=== PATIENT | female | born 1985 | race Caucasian/White ===

== ENCOUNTER → 2020-12-16 | Day surgery (SDC) | payer OTHER ==
[~2020-12-16] VITALS: Ht 162.6 cm; Wt 78.5 kg
[~2020-12-16] MED LIST: IBU600 MG PO; PERCOCET 5-3251 EACH PO
[2020-12-16 11:31] LABS: HCG (URINE) SCREEN NEGATIVE (NEGATIVE)
[2020-12-16 11:36] LABS: HCT 40.3 % (37.0-47.0); HGB 13.5 g/dl (12.5-16.0); MCHC 33.5 g/dL (32.0-36.0); MCV 89.6 fL (78.0-100.0); MPV 9.8 fL (6.0-9.5); RBC 4.5 M/uL (4.20-5.40); RDW 12.5 % (11.5-14.0); WBC 10.5 K/uL (4.0-10.5)
== END | disposition home or self-care (01) ==
LOC: FAS 10:51
PROVIDERS: Obstetrics & Gynecology
DX: N75.0 Cyst of Bartholin's gland (principal); F90.9 Attention-deficit hyperactivity disorder, unspecified type; F41.9 Anxiety disorder, unspecified; F31.9 Bipolar disorder, unspecified; Z87.891 Personal history of nicotine dependence; Z88.5 Allergy status to narcotic agent
CPT/HCPCS: 36415; 84703; 86850; 86900; 86901; J1100; J1170; J1885; J2250; J2405; J2704; J3010; J7120

== ENCOUNTER 2021-03-25 11:57 | Emergency (ER) | payer OTHER | END 2021-03-25 15:38 | disposition left against medical advice (07) | LOC: FER 11:57 | DX: N76.4 Abscess of vulva (principal); Z53.21 Procedure and treatment not carried out due to patient leaving prior to being seen by health care provider ==

== ENCOUNTER → 2021-11-04 | Day surgery (SDC) | payer OTHER ==
[~2021-11-04] VITALS: Ht 162.6 cm; Wt 79.4 kg
[~2021-11-04] MED LIST changes: +DESYREL50 MG PO; +LAMOTRIGINE25 MG PO; +NEURONTIN300 MG PO; +VENTOLIN HFA IN18 GM INH
[2021-11-04 10:26] LABS: HCG (URINE) SCREEN NEGATIVE (NEGATIVE)
== END | disposition home or self-care (01) ==
LOC: FAS 09:58
PROVIDERS: Anesthesiology
DX: K80.12 Calculus of gallbladder with acute and chronic cholecystitis without obstruction (principal); F17.200 Nicotine dependence, unspecified, uncomplicated; F41.8 Other specified anxiety disorders; B19.20 Unspecified viral hepatitis C without hepatic coma; A64 Unspecified sexually transmitted disease; F31.89 Other bipolar disorder; J45.909 Unspecified asthma, uncomplicated; Z98.890 Other specified postprocedural states; Z80.1 Family history of malignant neoplasm of trachea, bronchus and lung; Z88.8 Allergy status to other drugs, medicaments and biological substances
CPT/HCPCS: 84703; J0295; J1100; J1170; J1885; J2250; J2405; J2704; J3010; J7120; Q9967

== ENCOUNTER 2021-11-09 06:32 | Emergency (ER) | payer OTHER ==
[2021-11-09 06:55] LABS: BASOPHIL 0.5 % (0-2); EOSINOPHIL 5.2 % (0-5); HCT 43.4 % (37.0-47.0); HGB 14.6 g/dl (12.5-16.0); LYMPHOCYTE 12.9 % (15-48); MCH 30.6 pg (25.0-31.0); MCHC 33.6 g/dL (32.0-36.0); NEUTROPHIL 75.8 % (41-80); NRBC 0; PLT 279 K/uL (150-400); RBC 4.77 M/uL (4.20-5.40); WBC 13.7 K/uL (4.0-10.5)
[2021-11-09 07:18] LABS: ALBUMIN 3.5 g/dL (3.4-5.0); BILIRUBIN - TOTAL 1.4 mg/dL (0.2-1.0); BUN/CREAT RATIO (CALC) 11.6 RATIO; CREATININE 0.69 mg/dL (0.51-0.95); GLOBULIN (CALCULATION) 3.6 g/dL; POTASSIUM 3.9 mmol/L (3.5-5.1); TOTAL PROTEIN 7.1 g/dL (6.4-8.2)
== END 2021-11-09 11:57 | disposition home or self-care (01) ==
LOC: FER 06:32
PROVIDERS: Emergency Medicine
DX: G89.18 Other acute postprocedural pain (principal); R10.9 Unspecified abdominal pain; Z28.310 Unvaccinated for COVID-19; F17.200 Nicotine dependence, unspecified, uncomplicated; Z88.8 Allergy status to other drugs, medicaments and biological substances
CPT/HCPCS: 36415; 71275; 74183; 80053; 83690; 84703; 85025; A9579; J1885; J7030; Q9967

== ENCOUNTER → 2021-12-17 | Day surgery (SDC) | payer OTHER ==
[~2021-12-17] VITALS: Ht 162.6 cm; Wt 75.3 kg
[~2021-12-17] MED LIST changes: +ATIVAN0.5 MG PO; +QUETIAPINE FUMA50 MG PO
[2021-12-17 06:58] LABS: HCG (URINE) SCREEN NEGATIVE (NEGATIVE)
[2021-12-17 07:17] LABS: BASOPHIL 0.9 % (0-2); EOSINOPHIL 2.5 % (0-5); HCT 39.8 % (37.0-47.0); HGB 13.5 g/dl (12.5-16.0); LYMPHOCYTE 36.6 % (15-48); MCH 30.5 pg (25.0-31.0); MCHC 33.9 g/dL (32.0-36.0); MCV 89.8 fL (78.0-100.0); MONOCYTE 5.7 % (0-12); MPV 9.9 fL (6.0-9.5); NEUTROPHIL 53.8 % (41-80); NRBC 0; PLT 254 K/uL (150-400); RBC 4.43 M/uL (4.20-5.40); RDW 12.7 % (11.5-14.0); WBC 10.2 K/uL (4.0-10.5)
== END | disposition home or self-care (01) ==
LOC: FAS 06:30
PROVIDERS: Oral & Maxillofacial Surgery
DX: K02.9 Dental caries, unspecified (principal); K04.7 Periapical abscess without sinus; J45.909 Unspecified asthma, uncomplicated; F41.9 Anxiety disorder, unspecified; F31.9 Bipolar disorder, unspecified; F17.200 Nicotine dependence, unspecified, uncomplicated; Z79.899 Other long term (current) drug therapy; Z88.8 Allergy status to other drugs, medicaments and biological substances
CPT/HCPCS: D7140; D7210; D7310; 36415; 84703; 85025; J1100; J1170; J1885; J2250; J2405; J2704; J7120